=== PATIENT | male | born 1975 | race Hispanic/Latino ===

== ENCOUNTER 2025-06-11 05:40 | Observation (INO) | payer MEDICARE ==
[2025-06-11] VITALS (7 sets, daily range): BP systolic 136–159; BP diastolic 72–86; PULSE 79–120; RESP 18–20; TEMP 97.3–99.1; O2SAT 97–100
[~2025-06-11] VITALS: Ht 170.2 cm; Wt 70.8 kg
[~2025-06-11 05:40] MED LIST: ATORVASTATIN CA20 MG PO; BACLOFEN10 MG PO; CEFUROXIME250 MG PO; GEMFIBROZIL600 MG PO; HYDROCODON-ACE1 EAC9; LEVOFLOXACIN250 MG PO; MULTI-VITAMIN1 EACH PO; NEURONTIN400 MG PO; SULFAMETHOXAZO100 GM; TRAZODONE HCL100 MG PO
[2025-06-11 06:51] LABS: BASOPHILS % 0.9 % (0.0-1.0); EOSINOPHILS % 6.3 % (0.0-6.0); LYMPHOCYTES % 26.7 % (18.0-39.1); MONOCYTES % 9.9 % (4.4-11.3); NEUTROPHILS % 55.9 % (38.7-80.0); RED CELL DISTRIBUTION WIDTH 14.5 % (11.7-14.4)
[2025-06-11 07:20] LABS: EST GLOMERULAR FILTRATION RATE 115.0 ML/MIN (>=60)
[2025-06-11] MEDS ORDERED: PROPOFOL IV EMULSION 10 MG/ML 20 ML VIAL ONE (07:54)
[2025-06-11] MEDS ORDERED: FENTANYL CITRATE/PF 100MCG/2 ML INJ ONE (07:56)
[2025-06-11] MEDS ORDERED: MIDAZOLAM HCL 2 MG/2 ML VIAL ONE (07:56)
[2025-06-11] MEDS ORDERED: LIDOCAINE HCL 2% LOCAL INJ 5 ML SDV VIAL INJ ONE (07:56)
[2025-06-11] MEDS: CEFTRIAXONE 1 GM VIAL ONE (08:20)
[2025-06-11] MEDS: SODIUM CHLORIDE 0.9% 1000ML 1,000 ML ONE (08:20)
[2025-06-11] MEDS ORDERED: EPHEDRINE SULFATE INJ 50 MG/ML VIAL ONE (08:25)
[2025-06-11] MEDS: DIPHENHYDRAMINE HCL INJ 50 MG/ML VIAL ONE (09:20)
[2025-06-11] MEDS: HYDROCODONE/APAP 10MG-325MG TAB ONE (09:30)
[2025-06-11] MEDS: FENTANYL CITRATE/PF 100MCG/2 ML INJ ONE (11:43)
[2025-06-11] MEDS: LACTATED RINGER'S 1,000 ML INJ ONE (12:00)
[2025-06-11] MEDS: LEVOFLOXACIN 500 MG TAB PO SCH (12:00)
[2025-06-11] MEDS: GABAPENTIN 300 MG CAP PO SCH (21:27)
[2025-06-11] MEDS: BACLOFEN 10 MG TAB PO SCH (21:27)
[2025-06-11] MEDS: ATORVASTATIN 20 MG TAB PO SCH (21:27)
[2025-06-11] MEDS: TRAZODONE HCL 50 MG TAB PO SCH (21:27)
[2025-06-11] MEDS: HYDROCODONE/APAP 10MG-325MG TAB PO PRN (21:32)
[2025-06-11] MEDS: GEMFIBROZIL 600 MG TAB PO SCH (22:47)
[2025-06-12 03:06] VITALS: BP 132/68; PULSE 115; RESP 18; TEMP 98.8; O2SAT 99
[2025-06-12 08:00] VITALS: BP 127/86; PULSE 107; RESP 17; TEMP 99.1; O2SAT 100
[2025-06-12] MEDS: MULTIVITAMINS/MINERALS TAB PO SCH (08:23)
[2025-06-12 09:06] VITALS: BP 127/86; PULSE 107; RESP 17; TEMP 99.1; O2SAT 100
[2025-06-12 12:00] VITALS: BP 120/71; PULSE 106; RESP 18; TEMP 98.6; O2SAT 100
[2025-06-12 16:00] VITALS: BP 138/72; PULSE 111; RESP 17; TEMP 98.7; O2SAT 100
== END 2025-06-12 16:45 | disposition home or self-care (01) ==
LOC: OR 05:40 → PACU V 09:40 → MED/SURG3 10:40
PROVIDERS: ADMIT Urology; ATTEND Urology
DX: N21.0 Calculus in bladder (principal); R53.2 Functional quadriplegia; G35 Multiple sclerosis; Z87.440 Personal history of urinary (tract) infections; G47.33 Obstructive sleep apnea (adult) (pediatric); Z99.3 Dependence on wheelchair; F32.A Depression, unspecified
CPT/HCPCS: 36415; 51050; 71046; 80048; 85025; 88300; 93005; G0378 ×2; J0696; J1200; J2003; J2250; J2704; J3010; J7030; J7121